=== PATIENT | female | born 1990 | race Caucasian/White ===

== ENCOUNTER 2018-08-08 10:42 | Emergency (ER) | payer OTHER ==
[2018-08-08] MEDS ORDERED: Adacel Vial IM ONE ×2 (11:01→11:05)
[2018-08-08] MEDS ORDERED: TYLENOL EXTRA STRENGTH 500 MG ONE (11:02)
[2018-08-08] MEDS ORDERED: TYLENOL EXTRA STRENGTH 500 MG PO STA (11:04)
--- NOTE | 2018-08-08 11:10 | ERPHSYRPT ---
- History of Present Illness Source: patient Exam Limitations: no limitations Patient Subjective Stated Complaint: cut palm of left hand with a knife Triage Nursing Assessment: Pt c/o of left hand palm pain due to a 1 cm laceration from a knife while trying to get some cinnamon rolls out of a [place], minimal bleeding, rates pain 6/10, vitals wnl after sitting for about 10 minutes , doesn't appear to be in any distress Physician History: Pt presented to the ED with a left anterior hand laceration of about 1cm. The laceration is not bleeding and pt cleaned it with H2O2 at home, prior to presentation. Pt denies all other complains. She is not sure if her tetanus is 5-6 yeasr ago. Timing/Duration: today Quality: burning, other (throbing) Severity: mild Location: hands (L anterior hand) Possible Causes: foods Allergies/Adverse Reactions: nut - unspecified Allergy (Verified 08/08/18 10:57) Home Medications: No Reportable Medications [No Reported Medications] 08/08/18 [History] Hx Tetanus, Diphtheria Vaccination/Date Given: No - Review of Systems Constitutional: No Fever, No Chills Eyes: No Symptoms Skin: Other (laceration from a knife. About 1 cm mid palm of the hand.) - Past Medical History Pertinent Past Medical History: No - Past Surgical History Past Surgical History: Yes Female Surgical History: Section - Social History Smoking Status: Never smoker Exposure to second hand smoke: No Drug Use: none Patient Lives Alone: No - Female History Hx Last Menstrual Period: 07/29/2018 Hx Now: No - Nursing Vital Signs Nursing Vital Signs: Initial Vital Signs Temperature 100.0 F 08/08/18 10:45 Pulse Rate 108 H 08/08/18 10:45 Blood Pressure 144/90 08/08/18 10:45 O2 Sat by Pulse Oximetry 98 08/08/18 10:45 Pain Scale Pain Intensity 6 - Physical Exam General Appearance: moderate distress, alert Skin Exam: laceration (1 Cm mid palm of anterior L hand) SpO2: 98 Procedures - Laceration/Wound Repair Left Upper Anterior Hand Wound Location: Left, hand Wound Length (cm): 1 Wound Explored: contaminated Irrigated: Yes Hibiclens Prep: Yes Wound Repaired With: Dermabond Sterile Dressing Applied?: Yes - Course Nursing assessment & vital signs reviewed: Yes Ordered Tests: Medication Summary Discontinued Medications Generic Name Dose Route Start Last Admin Trade Name Jacob PRN Reason Stop Dose Admin Acetaminophen 1,000 mg 08/08/18 11:04 Tylenol Extra Strength 500 Mg PO 08/08/18 11:05 STAT STA Diphtheria/Tetanus/Acell Pertussis 0.5 ml 08/08/18 11:01 Adacel Vial IM 08/08/18 11:02 .ONCE ONE - Progress Progress: improved Progress Note: 08/08/18 11:14 Pt was given Tylenol 1gr PO, and tetanus vaccine. The hand was cleaned with hibiclens, and dermabond was applied. Pt tolerated the procedure well. Will see patient in: office Counseled pt/family regarding: need for follow-up - Departure Time of Disposition: 11:25 Departure Disposition: Home Clinical Impression: Laceration Condition: Stable Critical Care Time: No Referrals: IVIS HUSSEIN [Primary Care Provider] - Additional Instructions: Keep hand dry today, and try and avoid movement that can move the laceration and remove the dermabond. F/U with PCP in a couple of days.
[2018-08-08 11:25] VITALS: BP 140/86; PULSE 98; O2SAT 99
== END 2018-08-08 11:27 | disposition home or self-care (01) ==
LOC: ED 10:42
DX: S61.412A Laceration without foreign body of left hand, initial encounter (principal); W26.0XXA Contact with knife, initial encounter
CPT/HCPCS: 12001; 90471; 99283; G0168; 90715; A9270-GY